=== PATIENT | female | born 1955 | race Caucasian/White ===

== ENCOUNTER 2018-02-06 08:50 | Day surgery (SDC) | payer BC ==
[~2018-02-06] VITALS: Ht 167.6 cm; Wt 79.5 kg
--- NOTE | ~2018-02-06 | HP ---
PATIENT: YUSRA VANESSA MEDICAL RECORD: [id number] ACCOUNT: [id number] LOCATION:[facility] : 51 ADMISSION DATE: 02/06/18 HISTORY AND PHYSICAL EXAMINATION CHIEF COMPLAINT: Li's esophagus. HISTORY: The patient has a history of Li's esophagus. She states that she is really not having much reflux. I performed a TIF procedure on her in the past along with a hiatal hernia repair. She had been having some aspiration prior to that time and that has improved since her antireflux operations. She is here for surveillance upper endoscopy with biopsies. ALLERGIES: IODINE WELL PLASTIC TAPE. HOME MEDICINES: Please see the nursing list. PAST MEDICAL AND SURGICAL HISTORY: Asthma; bronchitis; lung nodules; chronic dyspnea; gastroesophageal reflux in the past; Li's esophagus; hypothyroidism, on replacement therapy; also postoperative nausea and vomiting. REVIEW OF SYSTEMS: The patient has been having some right upper quadrant abdominal pain. PHYSICAL EXAMINATION: GENERAL: The patient does not appear acutely ill. She does not appear chronically ill. VITAL SIGNS: Reviewed. EARS: External ears appear normal. EYES: Extraocular movements are intact. NECK: Trachea is midline. CHEST: No intercostal retractions. PULMONARY: Nonlabored. No stridor. ABDOMEN: No guarding. No tenderness. IMPRESSION: 1. Right upper quadrant abdominal pain. 2. Li's esophagus, in need of surveillance upper endoscopy with biopsies. TRANSINT:[id number] Voice Confirmation ID: [id number] DOCUMENT ID: [id number] MAL ORDOÑEZ MD at 1518 CC: ASMITA LEVIN MD, CHRISTIANO VARGHESE and BEBETO STEWART [id number] DICTATION DATE: 02/06/18 1332 VOIP NETWORK ENGINEER: 02/06/18 1443 [facility] 02/06/18 [facility] [address] [place] [address]
--- NOTE | ~2018-02-06 | OP ---
PATIENT NAME: YUSRA VANESSA MEDICAL RECORD: [id number] :51 LOCATION:D.OPS ADMISSION DATE: SURGEON: MAL ORDOÑEZ MD DATE OF OPERATION: 02/06/2018 PREOPERATIVE DIAGNOSES: 1. Right upper quadrant abdominal pain. 2. History of Li's esophagus in need of surveillance upper endoscopy. POSTOPERATIVE DIAGNOSES: 1. Right upper quadrant abdominal pain. 2. History of Li's esophagus in need of surveillance upper endoscopy with moderate antral gastritis with erosions. PROCEDURE: Esophagogastroduodenoscopy with antral and distal esophageal biopsies. SURGEON: Mal Ordoñez MD ELECTRIC TRUCK OPERATOR: None. BLOOD LOSS: Minimal. ANESTHESIA: IV sedation. The risks, possible complications, and alternatives to procedure were explained to the patient. She elects to proceed. ENDOSCOPIC COURSE: The patient was conveyed to the endoscopy suite electively on 02/06/2018. IV sedation was induced by the anesthesia staff. A bite block was inserted. A gastroscope was inserted into the mouth. It was advanced easily into the hypopharynx. The esophagus was easily intubated as were the stomach and duodenum. Upon withdrawal, retroflexed and angulus views were obtained. Antral biopsies were obtained. Multiple distal esophageal biopsies were obtained along the line. The endoscope was then withdrawn under direct vision. I will see the patient in my office in 2-3 weeks. We will review the results of the biopsies. It is very likely at that time, I will recommend another surveillance upper endoscopy with biopsies in 2 years. TRANSINT:[id number] Voice Confirmation ID: [id number] DOCUMENT ID: [id number] MAL ORDOÑEZ MD at 1518 CC: ASMITA LEVIN MD, CHRISTIANO VARGHESE JEFFREY [id number] DICTATION DATE: 02/06/18 1350 STOCK MANAGER: 02/06/18 1412 [facility] 02/06/18 [id number] [place] [address]
[~2018-02-06 08:50] MED LIST: CRESTOR10 MG PO; DEXILANT60 MG PO; DULERA 100 MCG8.8 GM INH; HYDROCODON-ACET15 ML PO; LIPITOR40 MG PO; MAXALT MLT10 MG/TAB PO; MAXALT10 MG PO; PLAVIX75 MG PO; ROBAXIN500 MG PO; SINGULAIR10 MG PO; SYNTHROID50 MCG PO; ZOFRAN ODT4 MG/UDTAB PO
[2018-02-06 09:32] LABS: HEMATOCRIT 40.9 % (36.0-48.0); HEMOGLOBIN 13.8 g/dL (12-16); MCH 31.9 pg (26.0-34.0); MCHC 33.7 g/dL (31.0-37.0); MCV 94.7 fL (80.0-100.0); MEAN PLATELET VOLUME 9.1 fL (7.4-10.4); RBC 4.32 10x6/uL (4.00-5.40); RDW 13.1 % (11.5-14.5); WBC 7.5 10x3/uL (4.8-10.8)
[2018-02-06] MEDS ORDERED: HCTZ25 MG PO (09:44)
[2018-02-06] MEDS ORDERED: IPRAT-ALBUT 0.5-3 ML UPD (09:44)
[2018-02-06] MEDS ORDERED: PRECOSE50 MG PO (09:47)
[2018-02-06 10:04] VITALS: BP 108/48; Ht 167.6 cm; Wt 79.5 kg
== END 2018-02-06 14:55 | disposition home or self-care (01) ==
LOC: D.OPS 08:50
PROVIDERS: Anesthesiology
DX: K21.9 Gastro-esophageal reflux disease without esophagitis (principal); E03.9 Hypothyroidism, unspecified; J45.909 Unspecified asthma, uncomplicated; Z01.812 Encounter for preprocedural laboratory examination

== ENCOUNTER → 2018-08-28 07:09 | Outpatient (CLI) | payer BC ==
[2018-02-06 10:04] VITALS: BMI 28.3
[~2018-08-28 07:09] MED LIST changes: +HCTZ25 MG PO; +IPRAT-ALBUT 0.5-3 ML UPD; +PRECOSE50 MG PO
== END | disposition home or self-care (01) ==
LOC: D.MRI 07:09
DX: M79.601 Pain in right arm (principal)

== ENCOUNTER → 2018-09-14 14:48 | Outpatient (CLI) | payer BC ==
[2018-02-06 10:04] VITALS: BMI 28.3
== END | disposition home or self-care (01) ==
LOC: D.MRI 14:48
DX: M54.2 Cervicalgia (principal)

== ENCOUNTER → 2018-11-28 16:45 | Outpatient (CLI) | payer BC ==
[2018-02-06 10:04] VITALS: BMI 28.3
== END | disposition home or self-care (01) ==
LOC: D.CT 16:45
DX: R91.8 Other nonspecific abnormal finding of lung field (principal)

== ENCOUNTER 2019-07-23 07:01 | Day surgery (SDC) | payer BC ==
[~2019-07-23] VITALS: Ht 167.6 cm; Wt 81.8 kg
[2019-07-23 07:39] LABS: HEMATOCRIT 40.7 % (36.0-48.0); HEMOGLOBIN 14.3 g/dL (12-16); MCH 31.9 pg (26.0-34.0); MCHC 35.1 g/dL (31.0-37.0); MCV 90.8 fL (80.0-100.0); RBC 4.48 10x6/uL (4.00-5.40); RDW 12.6 % (11.5-14.5); WBC 5.9 10x3/uL (4.8-10.8)
[2019-07-23] MEDS ORDERED: DONEPEZIL HCL5 MG PO (08:57)
[2019-07-23 09:07] VITALS: BP 136/57; Ht 167.6 cm; Wt 81.8 kg
--- NOTE | 2019-07-23 12:02 | NUR ---
1150 IV REMOVED, COUGHING LESS. ATE POP CYCLE WITHOUT ANY DIFFICULTY. TOLERATING ICE CHIPS, INSTRUCTIONS GIVEN TO PT AND
--- NOTE | 2019-07-23 14:32 | HP ---
PATIENT: YSURA VANESSA MEDICAL RECORD: [id number] ACCOUNT: [id number] LOCATION:D.OPS : 51 ADMISSION DATE: 07/23/19 PCP: CHRISTIANO VARGHESE MD HISTORY AND PHYSICAL EXAMINATION CHIEF COMPLAINT: History of Li esophagus, in need of surveillance. HISTORY OF PRESENT ILLNESS: The patient has had some recent dysphagia. She has a history of Li's and requires surveillance upper endoscopy with biopsies. No significant gastroesophageal reflux. She has undergone an antireflux procedure by me in the past. No hematemesis. No abdominal pain. ALLERGIES: IODINE. HOME MEDICATIONS: As described above including Dexilant. SOCIAL HISTORY: Nonsmoker. PAST MEDICAL AND SURGICAL HISTORY: Asthma, bronchitis, hypertension, gastroesophageal reflux, hypothyroidism, postoperative nausea and vomiting, arthritis. REVIEW OF SYSTEMS: Negative for CVA or seizures. Negative for diabetes or hepatitis. PHYSICAL EXAMINATION: GENERAL: The patient does not appear acutely ill. She does not appear chronically ill. VITAL SIGNS: Reviewed. EARS: External ears appear normal. EYES: Extraocular movements are intact. NECK: Trachea is midline. CHEST: No intercostal retractions. PULMONARY: Nonlabored. No stridor. IMPRESSION: 1. Li esophagus, in need of surveillance upper endoscopy with biopsies. 2. Dysphagia. PLAN: EGD with biopsies. Esophageal dilation. TRANSINT:[id number] Voice Confirmation ID: [id number] DOCUMENT ID: [id number] MAL ORDOÑEZ MD at 1432 CC: CHRISTIANO VARGHESE [id number] DICTATION DATE: 07/23/19 1036 FOOD PROCESSING SCIENTIST: 07/23/19 1047 [facility] 07/23/19 [facility] [address] [place] [id number]
--- NOTE | 2019-07-23 14:32 | OP ---
PATIENT NAME: YUSRA VANESSA MEDICAL RECORD: [id number] :51 LOCATION:D.OPS ADMISSION DATE: SURGEON: NETO ORDOÑEZ MD DATE OF OPERATION: 07/23/2019 PREOPERATIVE DIAGNOSES: 1. Li's in need of surveillance upper endoscopy with biopsies. 2. Dysphagia. POSTOPERATIVE DIAGNOSES: 1. Li's in need of surveillance upper endoscopy with biopsies. 2. Dysphagia. 3. Distal esophageal ring. 4. Possible regression in the Li's. 5. Recurrent small hiatal hernia. 6. Fundal gastric polyp, 7 x 7 mm, sessile. 7. Prepyloric erosions. PROCEDURE: 1. Esophagogastroduodenoscopy with antral and distal esophageal biopsies. 2. Gastric hot biopsy forceps polypectomy times 1. 3. Esophageal dilation with a hpbtabh-tid-bongqhvn balloon to 60-[place]zerbaijani. SURGEON: Neto Ordoñez MD CRM CONSULTANT: None. BLOOD LOSS: Minimal. ANESTHESIA: IV sedation. The risks, possible complications, and alternatives to the procedure were explained to the patient. She elects to proceed. ENDOSCOPIC COURSE: The patient was conveyed to the endoscopy suite electively on 07/23/2019. IV sedation was induced by the anesthesia staff. A bite block was inserted. A gastroscope was inserted into the mouth. It was advanced easily into the hypopharynx. The esophagus was easily intubated as were the stomach and duodenum. Upon withdrawal, retroflexed and angulus views were obtained. Antral biopsies were obtained. I then withdrew into the cardia of the stomach. I advanced a through the catheter balloon. I sequentially dilated the entire esophagus to 60-[place]ijani. I then removed the gastroscope and the balloon dilator. I then readvanced the gastroscope. A polyp was noted in the fundus of the stomach. This was removed in its entirety utilizing the hot biopsy forceps polypectomy technique. I then withdrew into the distal esophagus. Four quadrant biopsies were obtained at the EG junction and also within the esophageal ring, which was not tight. The endoscope was then withdrawn under direct vision. The patient can see me in the office in 2-3 weeks. I am going to encourage the patient to take her PPI as there appears to have been some regression in the Li's, which I find very favorable. I think we will do her next upper endoscopy with biopsies in 3 years. OPERATIVE REPORT [id number] YUSRA VANESSA TRANSINT:[id number] Voice Confirmation ID: [id number] DOCUMENT ID: [id number] NETO ORDOÑEZ MD at 1432 CC: CHRISTIANO VARGHESE [id number] DICTATION DATE: 07/23/19 1138 CULVERT INSTALLER: 07/23/19 1233 [facility] [place] 07/23/19 [place] [id number] [place] [id number]
== END 2019-07-23 12:00 | disposition home or self-care (01) ==
LOC: D.OPS 07:01
PROVIDERS: Anesthesiology; ATTEND Surgery
DX: K22.70 Barrett's esophagus without dysplasia (principal); R13.10 Dysphagia, unspecified; K22.2 Esophageal obstruction; K44.9 Diaphragmatic hernia without obstruction or gangrene; K31.7 Polyp of stomach and duodenum; K25.9 Gastric ulcer, unspecified as acute or chronic, without hemorrhage or perforation; Z01.812 Encounter for preprocedural laboratory examination

== ENCOUNTER → 2019-07-31 18:47 | Outpatient (CLI) | payer BC ==
[2019-07-23 09:07] VITALS: BMI 29.1
[~2019-07-31 18:47] MED LIST changes: +DONEPEZIL HCL5 MG PO
== END ==
LOC: D.MAMMO 16:00
PROVIDERS: ATTEND Family Medicine
DX: Z12.31 Encounter for screening mammogram for malignant neoplasm of breast (principal)

== ENCOUNTER 2021-03-17 17:00 | Outpatient (CLI) | payer MEDICARE, BC ==
[2019-07-23 09:07] VITALS: BMI 29.1
== END 2021-03-17 23:59 | disposition home or self-care (01) ==
LOC: D.MAMMO 17:00
PROVIDERS: ATTEND Family Medicine
DX: Z12.31 Encounter for screening mammogram for malignant neoplasm of breast (principal)